=== PATIENT | female | born 1950 | race Caucasian/White ===

== ENCOUNTER 2022-08-17 11:49 | Emergency (ER) | payer BC, OTHER ==
[~2022-08-17] VITALS: Ht 162.6 cm; Wt 74.8 kg
--- NOTE | 2022-08-17 12:00 | NUR ---
BIB SISTER FROM HER B & C FACILITY,C/O ABDOMINAL PAIN FOR "MONTHS" AND RECURRENT UTI's. AMBULATORY, PLACED ON BED/
--- NOTE | 2022-08-17 12:34 | NUR ---
PATIENT TAKEN TO CT VIA MATILDE
--- NOTE | 2022-08-17 12:51 | NUR ---
ECOMMERCE MANAGER AT BEDSIDE
--- NOTE | 2022-08-17 13:26 | NUR ---
URINE SAMPLE SENT TO LAB
[2022-08-17 13:40] LABS: BASOPHILS # (AUTO) 0.1 K/uL (0.0-0.2); BASOPHILS % (AUTO) 0.6 % (0.0-2.0); EOSINOPHILS % (AUTO) 1.1 % (0.0-6.0); HEMATOCRIT 39 % (33-45); HEMOGLOBIN 12.8 g/dL (11.5-14.8); LYMPHOCYTES # (AUTO) 2.4 K/uL (0.8-4.8); LYMPHOCYTES % (AUTO) 26.8 % (20.0-44.0); MEAN CORPUSCULAR HGB CONC 33 g/dl (31.0-36.0); MEAN CORPUSCULAR VOLUME 84 fL (82-100); MONOCYTES # (AUTO) 0.7 K/uL (0.1-1.30); MONOCYTES % (AUTO) 8.1 % (2.0-12.0); NEUTROPHILS # (AUTO) 5.7 K/uL (1.8-8.9); NEUTROPHILS % (AUTO) 63.4 % (43.0-81.0); PLATELET COUNT (AUTO) 260 K/uL (150-450); RED BLOOD CELL COUNT(AUTO) 4.65 MIL/uL (4.0-5.2); WHITE BLOOD COUNT (AUTO) 8.9 K/uL (4.3-11.0)
[2022-08-17 14:11] LABS: BILIRUBIN,URINE NEGATIVE (NEGATIVE); COLOR,URINE YELLOW (YELLOW); LEUKOCYTE ESTERASE ,URINE 1+ (NEGATIVE); NITRITE, URINE NEGATIVE (NEGATIVE); PH,URINE 7.5 (5.0-8.0); PROTEIN,URINE NEGATIVE (NEGATIVE); UGLUCOSE NEGATIVE (NEGATIVE); UROBILINOGEN,URINE 0.2 EU/dL (0.2)
[2022-08-17 14:14] LABS: ALBUMIN 3.5 g/dL (3.4-5.0); BILIRUBIN,DIRECT 0.1 mg/dL (0.0-0.2); BILIRUBIN,TOTAL 0.4 mg/dL (0.2-1.0); CALCIUM, SERUM 9.6 mg/dL (8.5-10.1); POTASSIUM 3.7 mmol/L (3.5-5.1)
[2022-08-17] MEDS ORDERED: CIPR-262 PO (14:23)
--- NOTE | 2022-08-17 14:30 | NUR ---
Patient discharged to home in stable condition. Written and verbal after care instructions given. Patient verbalizes understanding of instruction.
[2022-08-17 14:32] LABS: BACTERIA,URINE Few /HPF (None Seen); RBC,URINE NONE SEEN /HPF (0-2); SQUAMOUS EPITHELIAL CELL,UR None Seen /HPF (None Seen)
[2022-08-17 14:34] VITALS: BP 145/85
== END 2022-08-17 14:30 | disposition home or self-care (01) ==
LOC: ER 12:02
DX: N39.0 Urinary tract infection, site not specified (principal); Z87.440 Personal history of urinary (tract) infections
CPT/HCPCS: 36415; 80048-TC; 80076-TC; 81001; 83690-TC; 85025-TC; 87086-TC; 87186-TC

== ENCOUNTER 2022-10-20 14:45 | Inpatient (IN) | payer MEDICARE, OTHER ==
[~2022-10-20] VITALS: Ht 167.6 cm; Wt 80.7 kg
[~2022-10-20 14:45] MED LIST: CIPR-262 PO
--- NOTE | 2022-10-20 15:25 | NUR ---
RAC #20, BLOOD DRAWN AND COLLECTED BY PHLEB AT BEDSIDE
[2022-10-20] MEDS ORDERED: IV NS 0.9% 1,000 ML BAG IV ONE (15:30)
--- NOTE | 2022-10-20 15:34 | NUR ---
CALLED CAD SPECIALIST FOR PATIENT/FAMILY REQUEST
[2022-10-20 15:40] LABS: BASOPHILS % (AUTO) 0.3 % (0.0-2.0); EOSINOPHILS % (AUTO) 1.3 % (0.0-6.0); HEMATOCRIT 39 % (33-45); HEMOGLOBIN 12.7 g/dL (11.5-14.8); LYMPHOCYTES # (AUTO) 2.6 K/uL (0.8-4.8); MEAN CORPUSCULAR HGB CONC 33 g/dl (31.0-36.0); MEAN CORPUSCULAR VOLUME 83 fL (82-100); MONOCYTES # (AUTO) 0.6 K/uL (0.1-1.30); MONOCYTES % (AUTO) 8.6 % (2.0-12.0); NEUTROPHILS # (AUTO) 3.3 K/uL (1.8-8.9); NEUTROPHILS % (AUTO) 49.8 % (43.0-81.0); PLATELET COUNT (AUTO) 227 K/uL (150-450); RED BLOOD CELL COUNT(AUTO) 4.67 MIL/uL (4.0-5.2); WHITE BLOOD COUNT (AUTO) 6.6 K/uL (4.3-11.0)
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
[2022-10-20 16:08] LABS: ALBUMIN 3.4 g/dL (3.4-5.0); BILIRUBIN,DIRECT 0.1 mg/dL (0.0-0.2); BILIRUBIN,TOTAL 0.2 mg/dL (0.2-1.0); CALCIUM, SERUM 9.3 mg/dL (8.5-10.1); CREATININE 0.9 mg/dL (0.6-1.3); POTASSIUM 3.5 mmol/L (3.5-5.1)
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
--- NOTE | 2022-10-20 17:12 | NUR ---
Myranda Russ [phone] (sister)
[2022-10-20 17:22] LABS: BILIRUBIN,URINE NEGATIVE (NEGATIVE); COLOR,URINE YELLOW (YELLOW); LEUKOCYTE ESTERASE ,URINE NEGATIVE (NEGATIVE); NITRITE, URINE NEGATIVE (NEGATIVE); PH,URINE 6.5 (5.0-8.0); PROTEIN,URINE TRACE mg/dl (NEGATIVE); UGLUCOSE NEGATIVE (NEGATIVE); UROBILINOGEN,URINE 0.2 EU/dL (0.2)
--- NOTE | 2022-10-20 18:00 | NUR ---
COVID AND MRSA SWABS OBTAINED AND SENT TO LAB
[2022-10-20 18:57] LABS: RBC,URINE 0-2 /HPF (0-2)
[2022-10-20 18:58] LABS: BACTERIA,URINE Few /HPF (None Seen); SQUAMOUS EPITHELIAL CELL,UR Few /HPF (None Seen); WBC,URINE NONE SEEN /HPF (0-3)
--- NOTE | 2022-10-20 20:14 | NUR ---
LAC #20G S/L; PATENT AND INTACT
--- NOTE | 2022-10-20 20:16 | NUR ---
COVID POSITIVE, AWARE
--- NOTE | 2022-10-20 22:39 | NUR ---
SPOKE TO MEENAKSHI LOYA DIRECTOR [employer] AND FAXED THE FACE SHEET TO [phone]
--- NOTE | 2022-10-20 22:44 | NUR ---
PT HAS AUTH TO BE ADMITTED S[facility]
--- NOTE | 2022-10-20 22:58 | NUR ---
DR HALL ON THE OHONE WITH DR BOLAND
--- NOTE | 2022-10-20 23:50 | NUR ---
PT AMBULATORY TO RESTROOM WITH 1 PERSON ASSIST. ADLS DONE.
--- NOTE | 2022-10-21 01:21 | NUR ---
ROOM 103
--- NOTE | 2022-10-21 01:32 | NUR ---
REPORT GIVEN TO P[facility] RN FOR NAHOMY
[2022-10-21 01:40] VITALS: BP 150/99
--- NOTE | 2022-10-21 01:45 | NUR ---
PT TRANSFERRED TO [facility] VIA HOSPITAL PROTOCOL. ALL BELONGINGS WITH PT. VSS.
[2022-10-21] MEDS ORDERED: ACETAMINOPHEN 325 MG TABLET PO PRN (02:00)
[2022-10-21] MEDS ORDERED: DEXTROSE 50%-WATER 50 ML DISP.SYRIN IV PRN (02:00)
[2022-10-21] MEDS ORDERED: *INSULIN REGULAR(HUMULIN R)HUM 100 UNIT/ML VIAL SQ PRN (02:00)
--- NOTE | 2022-10-21 06:35 | NUR ---
This patient arrived on the unit from the emergency department. Vital signs obtained. She is alert, but only oriented to self. Her speech is clear, but her understanding of why she's here is limited. She also has memory problems as she has a history of dementia. Admission interview will need to be updated when family arrives. However some information was contained within the patient's written chart. There are no signs of distress. She is orientated to her room and admonished to call for assistance. No IV was noted at the point of arrival.
[2022-10-21 06:54] LABS: BASOPHILS % (AUTO) 0.4 % (0.0-2.0); EOSINOPHILS % (AUTO) 1.7 % (0.0-6.0); HEMATOCRIT 36 % (33-45); HEMOGLOBIN 11.8 g/dL (11.5-14.8); LYMPHOCYTES # (AUTO) 2.6 K/uL (0.8-4.8); LYMPHOCYTES % (AUTO) 46.2 % (20.0-44.0); MEAN CORPUSCULAR HGB CONC 33 g/dl (31.0-36.0); MEAN CORPUSCULAR VOLUME 82 fL (82-100); MONOCYTES # (AUTO) 0.5 K/uL (0.1-1.30); MONOCYTES % (AUTO) 9.6 % (2.0-12.0); NEUTROPHILS # (AUTO) 2.4 K/uL (1.8-8.9); NEUTROPHILS % (AUTO) 42.1 % (43.0-81.0); PLATELET COUNT (AUTO) 183 K/uL (150-450); RED BLOOD CELL COUNT(AUTO) 4.35 MIL/uL (4.0-5.2); WHITE BLOOD COUNT (AUTO) 5.7 K/uL (4.3-11.0)
[2022-10-21 07:09] LABS: CREATININE 0.8 mg/dL (0.6-1.3); POTASSIUM 3.4 mmol/L (3.5-5.1)
[2022-10-21 07:34] LABS: THYROID STIMULATING HORMONE 2.413 uIU/mL (0.358-3.74)
[2022-10-21] MEDS: BLOOD SUGAR DIAGNOSTIC 1 EACH STRIP VI SCH ×2 (07:45→12:16)
[2022-10-21 08:00] VITALS: BP 172/81
[2022-10-21] MEDS ORDERED: risperiDONE 0.25 MG TABLET PO SCH (09:00)
[2022-10-21] MEDS: LISINOPRIL (20MG) 20 MG TABLET PO SCH ×2 (09:03→16:09)
[2022-10-21] MEDS: METFORMIN 500 MG TABLET PO SCH ×2 (09:03→16:09)
[2022-10-21] MEDS: INSULIN REGULAR, HUMAN 100 UNIT/ML 3 ML VIAL SQ PRN ×2 (09:40→12:23)
--- NOTE | 2022-10-21 10:49 | NUR ---
DC Planning: MEREDITH discussed DC with CM who stated pt. has [facility] and they have a placement team and will place pt. at a facility within their network. MEREDITH called the pt.'s sister, Myranda Russ [phone] and notified her of this and that CM would update her of accepting facility. Myranda expressed understanding and was agreeable to plan.
[2022-10-21] MEDS ORDERED: POTASSIUM CHLORIDE 20 MEQ TAB.PRT.SR PO SCH (11:00)
[2022-10-21 16:00] VITALS: BP 156/79
[2022-10-21] MEDS ORDERED: INSU100V SQ (16:01)
[2022-10-21] MEDS ORDERED: ACET325T53 PO (16:01)
[2022-10-21] MEDS ORDERED: ASPI-1420 PO (16:01)
[2022-10-21] MEDS ORDERED: TEMA15CA PO (16:01)
[2022-10-21] MEDS ORDERED: RISP0.2515 PO (16:01)
[2022-10-21] MEDS ORDERED: LORA-259 PO (16:01)
[2022-10-21 16:09] VITALS: BP 156/79
--- NOTE | 2022-10-21 17:20 | NUR ---
RN NOTE PATIENT DISCHARGE, ON ROOM AIR A/OX1 DUE TO DEMENTIA. PATIENT SKIN INTACT, AMBULATORY WITH MINIMAL COLLECTION SYSTEMS CONSULTANT. PATIENT TRANSFERRED WITH RHESPERUS. ALL DISCHARGE PAPER INCLUDING MEDICATION, BELONGINGS ALL GIVEN TO PATIENT
== END 2022-10-21 17:49 | DRG 640 ==
LOC: ER 14:47 → MEDSG1 10-21 01:27
PROVIDERS: ADMIT Internal Medicine; ATTEND Internal Medicine
DX: R62.7 Adult failure to thrive (principal); U07.1 COVID-19; F03.90 Unspecified dementia, unspecified severity, without behavioral disturbance, psychotic disturbance, mood disturbance, and anxiety; Z87.440 Personal history of urinary (tract) infections; E11.9 Type 2 diabetes mellitus without complications; I10 Essential (primary) hypertension; Z78.9 Other specified health status; Z82.49 Family history of ischemic heart disease and other diseases of the circulatory system; Z83.3 Family history of diabetes mellitus
CPT/HCPCS: 36415; 71045-TC; 80048-TC; 80076-TC; 81001; 82962-TC; 83690-TC; 84443-TC; 85025-TC; 85378-TC; 86140-TC; 87081-TC; 97112-TC; 97116-TC; 97530-TC; C9803; G0378; J1815; J7030

== ENCOUNTER 2022-10-29 19:32 | Emergency (ER) | payer BC, OTHER ==
[~2022-10-29] VITALS: Ht 165.1 cm; Wt 63.5 kg
[~2022-10-29 19:32] MED LIST changes: +ACET325T53 PO; +ASPI-1420 PO; -CIPR-262 PO; +INSU100V SQ; +LORA-259 PO; +RISP0.2515 PO; +TEMA15CA PO
[2022-10-29 20:38] VITALS: BP 127/61
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
[2022-10-29] MEDS ORDERED: IV NS 0.9% 500 ML BAG IV ONE (21:00)
--- NOTE | 2022-10-29 21:14 | NUR ---
BLOOD COLLECTED AND SENT TO LAB
--- NOTE | 2022-10-29 21:17 | NUR ---
BS 225
--- NOTE | 2022-10-29 21:30 | NUR ---
IV LINE ESTABLISHED, RAC22G
--- NOTE | 2022-10-29 21:30 | NUR ---
URINE COLLECTED AND SENT TO LAB
[2022-10-29 21:36] LABS: BASOPHILS # (AUTO) 0.1 K/uL (0.0-0.2); BASOPHILS % (AUTO) 0.3 % (0.0-2.0); EOSINOPHILS % (AUTO) 0.3 % (0.0-6.0); HEMATOCRIT 39 % (33-45); HEMOGLOBIN 12.5 g/dL (11.5-14.8); LYMPHOCYTES % (AUTO) 15.1 % (20.0-44.0); MEAN CORPUSCULAR HGB CONC 32 g/dl (31.0-36.0); MEAN CORPUSCULAR VOLUME 82 fL (82-100); MONOCYTES # (AUTO) 1.4 K/uL (0.1-1.30); MONOCYTES % (AUTO) 7.1 % (2.0-12.0); NEUTROPHILS # (AUTO) 15.4 K/uL (1.8-8.9); NEUTROPHILS % (AUTO) 77.2 % (43.0-81.0); PLATELET COUNT (AUTO) 324 K/uL (150-450); RED BLOOD CELL COUNT(AUTO) 4.67 MIL/uL (4.0-5.2); WHITE BLOOD COUNT (AUTO) 19.9 K/uL (4.3-11.0)
[2022-10-29 21:52] LABS: BILIRUBIN,URINE NEGATIVE (NEGATIVE); COLOR,URINE YELLOW (YELLOW); LEUKOCYTE ESTERASE ,URINE NEGATIVE (NEGATIVE); NITRITE, URINE NEGATIVE (NEGATIVE); PROTEIN,URINE NEGATIVE (NEGATIVE); UGLUCOSE NEGATIVE (NEGATIVE); UROBILINOGEN,URINE 0.2 EU/dL (0.2)
[2022-10-29 21:54] LABS: CALCIUM, SERUM 9.7 mg/dL (8.5-10.1); CARBON DIOXIDE 30 mmol/L (21-32); CHLORIDE 103 mmol/L (98-107); CREATININE 1.2 mg/dL (0.6-1.3); GLUCOSE 214 mg/dL (74-106); POTASSIUM 3.5 mmol/L (3.5-5.1); SODIUM SERUM 141 mmol/L (136-145); UREA NITROGEN, BLOOD 26 mg/dL (7-18)
[2022-10-29 21:58] LABS: ALANINE AMINOTRANSFERASE 14 U/L (12-78); ALBUMIN 3.5 g/dL (3.4-5.0); ALKALINE PHOSPHATASE 76 U/L (46-116); ASPARTATE AMINOTRANSFERASE 12 U/L (15-37); BILIRUBIN,DIRECT 0.1 mg/dL (0.0-0.2); BILIRUBIN,TOTAL 0.2 mg/dL (0.2-1.0)
[2022-10-29 21:59] LABS: BACTERIA,URINE None seen /HPF (None Seen); HYALINE CASTS, URINE Few /LPF (None Seen); MUCUS,URINE Few /LPF (None Seen); RBC,URINE 0-2 /HPF (0-2); SQUAMOUS EPITHELIAL CELL,UR 0-2 /HPF (None Seen); WBC,URINE 0-2 /HPF (0-3)
[2022-10-29] MEDS ORDERED: Magnesium 1GM/D5W 100ML PREMIX 100 ML IV SCH (22:00)
[2022-10-29] MEDS ORDERED: Magnesium 1GM/D5W 100ML PREMIX 200 ML IV ONE (22:01)
--- NOTE | 2022-10-29 22:01 | NUR ---
COVID SWAB COLLECTED
[2022-10-29] MEDS ORDERED: Magnesium 1GM/D5W 100ML PREMIX PIGGYBACK IV ONE (22:30)
--- NOTE | 2022-10-29 22:41 | NUR ---
PROVIDED RASHID Gonsalez/Darcie HARRIS W/ [facility]
--- NOTE | 2022-10-29 23:13 | NUR ---
DEEP ON THE PHONE W/ DR LANDAVERDE FOR PEER TO PEER
--- NOTE | 2022-10-30 00:53 | NUR ---
TRANSFER INFO: [facility] ROOM 406-B REPORT TO [phone] CHONG ACCEPTING
--- NOTE | 2022-10-30 01:10 | NUR ---
LFA20G IV ESTABLISHED
--- NOTE | 2022-10-30 01:30 | NUR ---
REPORT GIVEN TO SRAVANTHI MATTHEWS FOR NAHOMY AT [facility]
--- NOTE | 2022-10-30 02:05 | NUR ---
TRANSPORT AT BEDSIDE, REPORT GIVEN
== END 2022-10-30 02:07 | disposition short-term general hospital (02) ==
LOC: ER 19:37
DX: E83.42 Hypomagnesemia (principal); R94.31 Abnormal electrocardiogram [ECG] [EKG]; E11.65 Type 2 diabetes mellitus with hyperglycemia; I10 Essential (primary) hypertension; F03.90 Unspecified dementia, unspecified severity, without behavioral disturbance, psychotic disturbance, mood disturbance, and anxiety; Z79.4 Long term (current) use of insulin; Z79.899 Other long term (current) drug therapy; Z86.16 Personal history of COVID-19; M54.2 Cervicalgia; W19.XXXA Unspecified fall, initial encounter; Y92.129 Unspecified place in nursing home as the place of occurrence of the external cause; Z20.822 Contact with and (suspected) exposure to COVID-19; N28.9 Disorder of kidney and ureter, unspecified
CPT/HCPCS: 99291; 72125; 96365; 96361; 87426; 93005; 71045; 70450; 85025; 80048; 80076; 83735; 81001; 36415; 84484; 82962; J3475; C9803